=== PATIENT | female | born 1990 | race Hispanic/Latino ===

== ENCOUNTER 2016-12-18 09:59 | Outpatient (CLI) | payer BC ==
--- NOTE | 2016-12-18 11:00 | RAD ---
THERE VIEWS LUMBAR SPINE: Date: 12-18-16 Comparison: None. History: Acute midline low back pain without sciatica. FINDINGS: Lumbar vertebral body height and alignment is normal. Lumbar pedicles appear intact on frontal imagi ng. No fracture or dislocation seen. IMPRESSION: No acute findings. POS: OFF
--- NOTE | 2016-12-18 11:00 | RAD ---
FOUR VIEWS OF THE RIGHT ELBOW: Date: 12-18-16 History: Chronic pain for one year, no history of trauma. FINDINGS: There is no fracture or evidence of dislocation. There is no elbow joint effusion. IMPRESSION: No acute findings. POS: OFF
== END 2016-12-18 10:00 | disposition home or self-care (01) ==
LOC: MADRAD 09:59
PROVIDERS: ATTEND Family Medicine
DX: M25.521 Pain in right elbow (principal); M54.5 Low back pain
CPT/HCPCS: 72100